=== PATIENT | male | born 1980 | race Caucasian/White ===

== ENCOUNTER 2017-12-04 11:16 | Inpatient (IN) | payer SELFPAY ==
[~2017-12-04] VITALS: Ht 172.7 cm; Wt 128.9 kg
[2017-12-04] VITALS (17 sets, daily range): BP systolic 130–161; BP diastolic 64–102; PULSE 53–80; RESP 16–32; TEMP 98–98.7; O2SAT 97–100
[~2017-12-04 11:16] MED LIST: AMOX875 PO; IBUP800 PO; IOHEXOL 350 MG/ML 100 ML BTL (for Cath Lab) OTHER ONE
[2017-12-04] MEDS ORDERED: SODIUM CHLOR 0.9% 1000 ML INJ 1,000 ML IV ONE ×2 (11:18→11:30)
[2017-12-04] MEDS ORDERED: ASPIRIN 81 MG CHEW TAB PO STA (11:18)
[2017-12-04] MEDS ORDERED: NITROGLYCERIN 0.4 MG SL 25 TABS/BTL SL STA (11:18)
[2017-12-04] MEDS ORDERED: HEPARIN SODIUM - IV 10,000 UNITS/10 ML VIAL IV PUSH STA (11:18)
[2017-12-04] MEDS ORDERED: NITROGLYCERIN-D5W 50 MG/250 ML 250 ML ONE (11:20)
[2017-12-04] MEDS ORDERED: MORPHINE SULFATE 4 MG/ML INJ ONE (11:21)
[2017-12-04] MEDS ORDERED: HEPARIN-NS/PF INJ 1,000 ML ONE (11:26)
[2017-12-04] MEDS ORDERED: HEPARIN SODIUM - IV 10,000 UNITS/10 ML VIAL ONE (11:28)
[2017-12-04] MEDS ORDERED: NITROGLYCERIN INJ 5 ML ONE (11:28)
[2017-12-04] MEDS ORDERED: VERAPAMIL HCL 5 MG/2 ML VIAL ONE (11:28)
[2017-12-04] MEDS ORDERED: NITROGLYCERIN-D5W 50 MG/250 ML 250 ML IV PRN (11:30)
[2017-12-04] MEDS ORDERED: MORPHINE SULFATE 2 MG/ML INJ IV PUSH ONE (11:30)
[2017-12-04] MEDS ORDERED: MIDAZOLAM HCL 2 MG/2 ML VIAL ONE ×3 (11:31→12:10)
[2017-12-04 11:38] LABS: AUTOMATED NEUTROPHIL # 4.9 TH/MM3 (1.8-7.7); BASOPHIL # 0.1 TH/MM3 (0-0.2); BASOPHIL % 0.9 % (0.0-2.0); EOSINOPHIL # 0.4 TH/MM3 (0-0.4); EOSINOPHIL % 3.3 % (0.0-4.0); HEMATOCRIT 41.9 % (39.0-51.0); HEMOGLOBIN 14.2 GM/DL (13.0-17.0); LYMPH % 49.9 % (9.0-44.0); LYMPHOCYTE # 6.3 TH/MM3 (1.0-4.8); MEAN CELL VOLUME 86.3 FL (80.0-100.0); MEAN CORPUSCULAR HEMOGLOBIN 29.2 PG (27.0-34.0); MEAN CORPUSCULAR HGB CONC 33.8 % (32.0-36.0); MEAN PLATELET VOLUME 7.1 FL (7.0-11.0); MONO % 7.6 % (0.0-8.0); NEUT % 38.3 % (16.0-70.0); PLATELET COUNT 342 TH/MM3 (150-450); RED BLOOD COUNT 4.86 MIL/MM3 (4.50-5.90); WHITE BLOOD COUNT 12.7 TH/MM3 (4.0-11.0)
[2017-12-04] MEDS ORDERED: MORPHINE SULFATE 8 MG/ML INJ ONE (11:43)
--- NOTE | 2017-12-04 11:44 | RADRPT ---
EXAM DATE/TIME: 12/04/2017 11:25 [place] COMPARISON: No previous studies available for comparison. INDICATIONS : Stemi alert MEDICAL HISTORY : None. SURGICAL HISTORY : None. ENCOUNTER: Initial ACUITY: 1 day PAIN SCORE: 10/10 LOCATION: Bilateral chest FINDINGS: A single view of the chest demonstrates the lungs to be symmetrically aerated without evidence of mas s, infiltrate or effusion. The cardiomediastinal contours are unremarkable. Osseous structures are intact. CONCLUSION: No acute disease. Foster Patrick MD on December 04, 2017 at 11:40 Board Certified Radiologist. This report was verified electronically.
[2017-12-04] MEDS ORDERED: NITROGLYCERIN/DEXTROSE 5% 250 ML for chest pain IV PRN (11:45)
[2017-12-04 11:48] LABS: PROTHROMBIN TIME - PATIENT 10.3 SEC (9.8-11.6)
--- NOTE | 2017-12-04 11:54 | PD ---
HPI Chief Complaint: STEMI Alert Time Seen by Provider: 11:17 Travel History International Travel<30 days: No Contact w/Intl Traveler<30days: No Traveled to known affect area: No History of Present Illness HPI 37-year-old male presents to the emergency department complaint of chest pain. He has had intermittent chest pain for the past couple days, then has had severe unrelenting chest pain for the past couple hours. EMS EKG showed inferior ST elevation PA. Patient has no known medical history. Endorses marijuana use but no sympathomimetic use. He has otherwise been feeling generally well and healthy. Symptoms been severe, constant sounds like, without aggravating or alleviating factors. History Past Medical History Medical History: Denies Significant Hx Social History Alcohol Use: Yes (OCCAS) Tobacco Use: No Allergies-Medications (Allergen,Severity, Reaction): Coded Allergies: No Known Allergies (Unverified Allergy, Unknown, 12/04/17) Reported Meds & Prescriptions Reported Meds & Active Scripts Active Motrin 800 Mg Tab (Ibuprofen) 800 Mg Tab 800 Mg PO Q8H PRN 7 Days Amoxil (Amoxicillin) 875 Mg Tab 875 Mg PO BID Review of Systems Except as stated in HPI: all other systems reviewed are Neg Physical Exam Narrative GENERAL: Ill-appearing 37-year-old man, pale cool diaphoretic. SKIN: Diaphoretic. No rash. HEAD: Atraumatic. Normocephalic. EYES: Pupils equal and round. No scleral icterus. No injection or drainage. ENT: No nasal bleeding or discharge. Mucous membranes pink and moist. NECK: Trachea midline. No JVD. CARDIOVASCULAR: Regular rate and rhythm. No murmur appreciated. RESPIRATORY: No accessory muscle use. Clear to auscultation. Breath sounds equal bilaterally. GASTROINTESTINAL: Abdomen soft, non-tender, nondistended. Hepatic and splenic margins not palpable. MUSCULOSKELETAL: No obvious deformities. No edema. NEUROLOGICAL: Awake and alert. No obvious cranial nerve deficits. Motor grossly within normal limits. Normal speech. PSYCHIATRIC: Anxious. Data Data Last Documented VS Vital Signs Date Time Temp Pulse Resp B/P (MAP) Pulse Ox O2 Delivery O2 Flow Rate FiO2 12/04/17 11:25 98.2 53 30 161/102 (121) 100 Non-Rebreather 15.00 Orders Orders Troponin I (12/04/17 11:18) Ckmb (Isoenzyme) Profile (12/04/17 11:18) Complete Blood Count With Diff (12/04/17 11:18) I-Stat Profile (12/04/17 11:18) I-Stat Creatinine (12/04/17 11:18) Calcium (12/04/17 11:18) Magnesium (Mg) (12/04/17 11:18) Prothrombin Time / Inr (Pt) (12/04/17 11:18) Act Partial Throm Time (Ptt) (12/04/17 11:18) B-Type Natriuretic Peptide (12/04/17 11:18) Chest, Single Ap (12/04/17 11:18) Electrocardiogram (12/04/17 11:18) Oxygen Administration (12/04/17 11:18) Iv Access Insert/Monitor (12/04/17 11:18) Oximetry (12/04/17 11:18) Sodium Chlor 0.9% 1000 Ml Inj (Ns 1000 M (12/04/17 11:18) Sodium Chloride 0.9% Flush (Ns Flush) (12/04/17 11:30) Aspirin Chew (Aspirin Chew) (12/04/17 11:18) Nitroglycerin Sl (Nitrostat Sl) (12/04/17 11:18) Heparin Inj (Heparin Inj) (12/04/17 11:18) Morphine Inj (Morphine Inj) (12/04/17 11:30) Sodium Chlor 0.9% 1000 Ml Inj (Ns 1000 M (12/04/17 11:30) Morphine Inj (Morphine Inj) (12/04/17 11:21) Admit Order (Ed Use Only) (12/04/17 ) Labs Laboratory Tests Test 12/04/17 11:15 White Blood Count 12.7 TH/MM3 Red Blood Count 4.86 MIL/MM3 Hemoglobin 14.2 GM/DL Bedside Hemoglobin 13.9 G/DL Hematocrit 41.9 % Bedside Hematocrit 41.0 % Mean Corpuscular Volume 86.3 FL Mean Corpuscular Hemoglobin 29.2 PG Mean Corpuscular Hemoglobin Concent 33.8 % Red Cell Distribution Width 14.0 % Platelet Count 342 TH/MM3 Mean Platelet Volume 7.1 FL Neutrophils (%) (Auto) 38.3 % Lymphocytes (%) (Auto) 49.9 % Monocytes (%) (Auto) 7.6 % Eosinophils (%) (Auto) 3.3 % Basophils (%) (Auto) 0.9 % Neutrophils # (Auto) 4.9 TH/MM3 Lymphocytes # (Auto) 6.3 TH/MM3 Monocytes # (Auto) 1.0 TH/MM3 Eosinophils # (Auto) 0.4 TH/MM3 Basophils # (Auto) 0.1 TH/MM3 CBC Comment AUTO DIFF Prothrombin Time 10.3 SEC Prothromb Time International Ratio 1.0 RATIO Activated Partial Thromboplast Time 23.1 SEC Bedside Sodium 142 MMOL/L Bedside Potassium 3.7 MMOL/L Bedside Chloride 108 MMOL/L Bedside Blood Urea Nitrogen 20 MG/DL Bedside Creatinine 0.9 MG/DL Bedside Glucose 156 MG/DL [facility] Medical Decision Making Medical Screen Exam Complete: Yes Emergency Medical Condition: Yes Interpretation(s) My review of EKG: Sinus bradycardia at a rate of 50, ST elevations in inferior leads with reciprocal lateral depressions in 1 and aVL, acute ST elevation PA. Right-sided EKG shows ST elevations in V4 R, V5 R, V6 R, suggestive right-sided infarct. I-STAT: Chemistries unremarkable, hemoglobin 13.9, creatinine 0.[address] elevation PA, aortic dissection, pericarditis, vasospasm, other Narrative Course Medical decision making 37-year-old man, presents to the emergency department complaining of severe chest pain. EKG from the field showed ST elevation PA. I reviewed this EKG prior to the patient's arrival. We called stimulant based on this initial field EKG. I was not able to call the physician until we determined which physician will need to be called on patient's arrival. On patient's arrival I did speak with Dr. Ocampo's. EKG was sent to his phone for review as well. Patient was given aspirin in route with EMS. Patient was given IV fluids, morphine, and heparin, as well as nitroglycerin infusion. Sublingual nitroglycerin was held due to concern for RV infarct. Patient had some bradycardia was treated with half a milligram of atropine. Given the patient's instability, I accompanied the patient to the Manager Training until Dr. Fu' arrival. Critical Care Narrative Aggregate critical care time was 40 minutes. Time to perform other separately billable procedures was not included in the critical care time. My time did not include minutes spent treating any other patients simultaneously or on activities that did not directly contribute to the patient's treatment. The services I provided to this patient were to treat and/or prevent clinically significant deterioration that could result in: , arrhythmia, worsening heart failure, . I provided critical care services requiring my management, as noted below: Chart data review, documentation time, medication orders and management, vital sign assessments/reviewing monitor data, ordering and reviewing lab tests, ordering and interpreting/reviewing x-rays and diagnostic studies, traveling with the patient to the Manager Training, care of the patient and discussion of the patient with the admitting physicians. Diagnosis Primary Impression: STEMI (ST elevation myocardial infarction) Admitting Information Admitting Physician Requests: Brendan Staton MD Dec 04, 2017 11:54
[2017-12-04 12:16] LABS: LYMPHOCYTES 50 % (9-44); MONOCYTES 7 % (0-8); NEUTROPHIL # MANUAL DIFF 5.5 TH/MM3 (1.8-7.7); POLYS (SEG NEUTROPHILS) 43 % (16-70)
[2017-12-04] MEDS ORDERED: CLOPIDOGREL 300 MG TAB ONE (12:35)
[2017-12-04] MEDS ORDERED: ATROPINE SULFATE 1 MG/10 ML SYRINGE ONE (12:37)
[2017-12-04] MEDS: TIROFIBAN INFUSION INJ 250 ML IV SCH ×2 (12:59→19:52)
[2017-12-04] MEDS ORDERED: MISC INFORMATION XX ONE (13:00)
[2017-12-04 13:12] LABS: CALCIUM 9.1 MG/DL (8.5-10.1); MAGNESIUM 1.8 MG/DL (1.5-2.5)
[2017-12-04 13:14] LABS: TROPONIN I 0.09 NG/ML (0.02-0.05)
--- NOTE | 2017-12-04 13:23 | MA ---
cc: LELO BOOGIE M.D. DATE: 12/04/2017. PROCEDURE: Left heart catheterization, selective coronary angiography, left ventriculography, thrombectomy, angioplasty and stent of a totally occluded proximal right coronary artery. PROCEDURE NOTES: The patient was brought to the cardiac catheterization laboratory in a fasting state after having signed informed consent in the midst of an acute inferior ST-elevation myocardial infarction. The right radial region was prepped and draped as per policy and anesthetized with 1% lidocaine. Arterial access was obtained via the right radial artery and a 6-Algerian sheath placed. We initially took shots of the right coronary with a tiger catheter. We could not engage the left main. We decided to proceed with percutaneous coronary intervention, but manipulation of catheters became difficult probably due to spasm in the right radial region. It was decided to perform the rest of the case through a right femoral arteriotomy approach. The right groin was anesthetized with 1% lidocaine. Arterial access was obtained via the right femoral artery and a 6-Algerian sheath placed. Coronary arteriography of the left coronary system was done using a Mary left 4.0. Percutaneous coronary intervention was done as described below. Left ventriculography was done using a standard 6-Algerian pigtail. The patient tolerated the procedure well. There were no apparent immediate complications. HEMODYNAMIC RESULTS: Left ventricle 128 with an end-diastolic pressure of 12. Aorta 137/88 with a mean of 110. There was no significant transvalvular aortic gradient on pullback of pigtail catheter. CORONARY ARTERIOGRAPHY: The left main is normal. The left anterior descending gives rise to a fairly large diagonal. There may be up to 20% mid-LAD stenosis. The left circumflex is a medium-sized vessel giving rise to medium-sized obtuse marginal. There is up to 30% proximal left circumflex stenosis. The right coronary artery is totally occluded proximally. LEFT VENTRICULOGRAPHY: Contrast injection of the left ventricle reveals no segmental wall motion abnormalities. Estimated ejection fraction of 60%. PERCUTANEOUS CORONARY INTERVENTION DESCRIPTION: Adequate heparin was given during the procedure to achieve an ACT greater than 250 seconds. Aggrastat was given as per protocol. Using a 6-Algerian hockey-stick guiding catheter with side holes, the ostium of the right coronary artery was re-engaged. Using a 0.014 P[place]ater guidewire, the total occlusion was crossed without difficulty and the tip of the wire positioned distally. One pass was made using an export thrombectomy catheter reestablishing flow in the vessel. Pre-dilation was done using a 3.0-mm Euphora balloon catheter. Stenting was done using a 3.5 x 15 mm bare- metal Integrity stent which was deployed at 13 atmospheres for approximately 30-40 seconds. Final angiography shows reduction of the total occlusion to 0% residual with no evidence for dissection or distal embolization. A large right ventricular branch which extends towards the apex has 30% ostial stenosis. The mid right coronary also has up to 30% tubular stenosis right after the takeoff of this right ventricular branch. CONCLUSIONS: 1. Acute inferior ST-elevation myocardial infarction due to total occlusion of the proximal right coronary artery now status post thrombectomy, angioplasty and stent of this region. 2. Mild LAD and proximal circumflex disease. 3. Normal left ventricular function with estimated ejection fraction of 60%. MD WAYNE Londono/SAIDA /12:39 PM /1:15 PM [place]
--- NOTE | 2017-12-04 13:38 | CATHPROC ---
[employer] HIS Report Study Information Study Number Admission Scheduled Start Study Start [id number] Dec 04 2017 11:16AM 12/04/2017 Dec 04 2017 11:35AM [place] Service Cardiac Catheterization Admit Source Facility Department Emergency department [facility] - Netsuite Consultant Physician and Clinical Staff Initial Jaiden Bonilla Business Services Director Razia Rosas BSN Business Services Director Stamper, Sarah Recorder Yamilet Valadez,SPECIAL SERVICES COORDINATOR TECH2 Scrub Hostliang, John,RT(R) Procedures Performed Procedure Location (Site) Vessel Name Angiogram LV LV Ventricle Coronary Angiograms LCA Left Coronary Coronary Angiograms RCA Right Coronary PTCA RCA Prox Right Coronary Stent RCA Prox Right Coronary Wire insertion Fem Art (right) Femoral Art Equipment Time Automated Equipment Engineer Technician Description Size Mfg Part Number Used/Scraped [id number] 12:00 [employer] WIRE, ASAFireID PROWATER 180CM 180CM Used *[id number] TRANSDUCER, TRUWAVE [id number] 11:57 ALVARADO MEDRANO * Used W/STOCKCOCK *[id number] 12:33 [facility] VASCADE, FR6 CLOSURE SYSTEM FR 6\\7 Used *[phone] *[id number] [id number] *[id number] [id number] *[id number] 534-620T *[id number] [phone] *1720087 [id number] *[id number] 098848 11:57 MALLINCKRODT SYRINGE, ANGIOMAT 150ML 150ML *[id number] Used 2S MEDICAL CONCEPT DRAPE, RADIAL FEMORAL FULL 11:57 * [id number] *[id number] Used DEVELOPMENT BODY [id number] 11:57 MEDLINE IND[employer]RIES PACK, CCL CUSTOM * Used *[id number] 11:57 [employer] SUPPORT, ARTERIAL ADULT 70188 *[id number] Used [id number] 11:57 MEDLINE PACER PEN, SKIN DUAL W/ RULER * Used *[id number] 12:19 [employer] BALLOON, 3.0 X 10MM EUPHORA 10MM Used *[id number] EXPORTAP 12:05 [employer] CATHETER, EXPORT ASPIRATON Used *[id number] 12:22 [employer] STENT, 3.5 15 INTEGRITY 3.5 15 Used *3971206 [id number] 12:21 [employer] 30 STEPHEN INDEFLATOR Used *6050019 [id number] 11:51 [email or web address] MEDICAL 30 STEPHEN INDEFLATOR Used *5544720 BAND, RADIAL COMPRESSION TR [id number] 12:40 [email or web address] MEDICAL 29CM Used LARGE 29 *[id number] 12:14 [employer] SHEATH, FR6.5 PRELUDE 11CM FR 6.5 038ACT Used *5336899 [id number] 11:57 [employer] WIRE, EXCHANGE 260CM 3MMJ 260CM Used *[id number] 11:57 NAMIC MANIFOLD, 4 PORT * Used *6631101 [id number] 12:33 NAMIC TUBING, HIGH PRESSURE 20" 20" Used *6381005 11:57 [employer] OMNIPAQUE, 350 MG, 150ML 150ML [id number] Used 12:30 [employer] OMNIPAQUE, 350 MG, 50ML 50ML [id number] Used 12:32 NYCOMED OMNIPAQUE, 350 MG, 50ML 50ML [id number] Used 15:08 [employer] FEMSTOP PUMP 82550 Used [id number] 11:57 [facility] BLANKET,WARM AIR CCL * Used *3254935 CATHETER, FR5 OPTITORQUE [id number] 11:55 [employer] FR 5 Used RADIAL TIG 4.0 *[id number] SHEATH, FR6 TRANSRADIAL RM*[id number] 11:58 TERUM[employer] FR 6 Used SLENDER 10CM *[id number] Equipment Model, Serial, Lot Number and Expiration Data Description Model Number Serial Number Lot Number Expiration Date CATHETER, EXPORT ASPIRATON [id number] 09-15-2019 STENT, 3.5 15 INTEGRITY [id number] 03-03-2019 History: Allergies Allergy Reaction No Known Allergies History: Risk Factors Family History of Hypertension Dyslipidemia Previous MO Previous Heart Failure Premature CAD No No Yes No No Prior Valve Prior PCI Prior CABG Surgery No No No Cerebrovascular Peripheral Artery Chronic Lung On Dialysis Diabetes Disease Disease Disease No No No No No History: Symptoms/Diagnosis Selection Items Chest pain History: Stress Tests Stress or Imaging Studies Performed No History: Other Current Smoker No Labs Hgb (g/dl) Hct (%) RBC (MIL/MM3) WBC (l/cumm) Platelets (thousands) 11.60-17.00 35.00-51.00 4.00-5.90 4.00-11.00 150.00-450.00 14.2 41.9 4.8 12.7 342 Glucose (mg/dl) BUN (mg/dl) Creatinine (mg/dl) BUN:Creatinine (1:x) 74.00-106.00 7.00-18.00 0.50-1.30 10.00-20.00 156 20 0.9 22.2 Na (meq/l) K (meq/l) Cl (meq/l) 136.00-145.00 3.50-5.10 98.00-107.00 142 3.7 108 CPK-MB (ng/ML) 0.50-3.60 Not Drawn Medication Medication Total Dose (Bolus/Oral) Medication Total Dosage/Unit 1% XYLOCAINE 30 mL AGGRASTAT BOLUS 66.5 mL ATROPINE 0.5 mg FENTANYL 100 mcg HEPARIN 7800 units MORPHINE 4 mg OXYGEN 2 l/min PLAVIX 600 mg RADIAL COCKTAIL 5 mL (Bolus) VERSED 4 mg Medications (Bolus/Oral) Medication Time Given Dosage/Unit Administered By Reason MORPHINE 12/04/2017 11:45:34 AM 4 mg Razia Rosas 4 mg MORPHINE given in lab by Razia Rosas BSN in Left Wrist via Peripheral IV. Ordered by Jaiden Wilkerson. 1% XYLOCAINE 12/04/2017 11:53:45 AM 10 mL Jaiden Fu 10 mL 1% XYLOCAINE given in lab by Jaiden Fu in Right Radial via Subcutaneous. Ordered by Gris Fu. VERSED 12/04/2017 11:53:54 AM 2 mg Razia Rosas 2 mg VERSED given in lab by Razia Rosas BSN in Left Wrist via Peripheral IV. Ordered by Jaiden Bowles. FENTANYL 12/04/2017 11:54:12 AM 50 mcg Razia Rosas 50 mcg FENTANYL given in lab by Razia Rosas BSN in Left Wrist via Peripheral IV. Ordered by Jaiden Fu. Ntg 200mcg Verapamil 2.5mg Heparin RADIAL COCKTAIL 12/04/2017 11:56:43 AM 5 mL (Bolus) Jaiden Fu 2500U 5 mL (Bolus) RADIAL COCKTAIL given in lab by Jaiden Fu in Right Radial via Radial. Using [Solution Name]. Ordered by Jaiden Fu. Reason: Ntg 200mcg Verapamil 2.5mg Heparin 2500U. VERSED 12/04/2017 11:57:36 AM 2 mg Razia Rosas 2 mg VERSED given in lab by Razia Rosas BSN in Left Wrist via Peripheral IV. Ordered by Jaiden Bowles. HEPARIN 12/04/2017 12:08:17 PM 7800 units Razia Rosas 7800 units HEPARIN given in lab by Razia Rosas BSN in Left Wrist via Peripheral IV. Ordered by Jaiden Fu. 1% XYLOCAINE 12/04/2017 12:10:59 PM 20 mL Jaiden Fu 20 mL 1% XYLOCAINE given in lab by Jaiden Fu in Right Groin via Subcutaneous. Ordered by Santy Fu. FENTANYL 12/04/2017 12:12:20 PM 50 mcg Sarah Phipps 50 mcg FENTANYL given in lab by Sarah Phipps in Left Wrist via Peripheral IV. Ordered by Santy Fu. ATROPINE 12/04/2017 12:18:37 PM 0.5 mg Razia Rosas 0.5 mg ATROPINE given in lab by Razia Rosas BSN in Left Wrist via Peripheral IV. Ordered by Jaiden Fu. OXYGEN 12/04/2017 12:40:31 PM 2 l/min Razia Rosas 2 l/min OXYGEN given in lab by Razia Rosas BSN via Nasal. Ordered by Jaiden Fu. Non rebre ather removed PLAVIX 12/04/2017 12:58:55 PM 600 mg Razia Rosas 600 mg PLAVIX given in lab by Razia Rosas BSN via Oral. Ordered by Jaiden Fu. AGGRASTAT BOLUS 12/04/2017 12:59:21 PM 66.5 mL Razia Rosas 66.5 mL AGGRASTAT BOLUS given in lab by Razia Rosas BSN in Left Wrist via Peripheral IV. Ord ered by Jaiden Fu. Medication (Drip) Medication Time Given Dosage/Unit Concentration/Unit Diluent (ml) Solutio n AGGRASTAT DRIP 12/04/2017 12:59:51 PM 0.15 mcg/kg/min 12.5 mg 250 NaCl .9 0.15 mcg/kg/min AGGRASTAT DRIP given in lab by Razia Rosas BSN in Left Wrist via Peripheral IV. Pump/Drip Flow = 23.4 ml/hr using NaCl .9 with a concentration of 12.5 mg in 250 ml. Ordered by Jaiden Fu. IV Solutions 12/04/2017 11:44:35 AM 0 mL (IV) 500 NaCl .9 Patient arrived on IV Solutions in Left Wrist via Peripheral IV. Pump/Drip Flow = 20 ml/hr using NaCl .9. Initial Case Assessment Cardiovascular HR Rhythm NIBP Chest Pain 71 sr 168/121 10 Circulatory - Right Pulses Dorsalis Pedis Femoral Radial 1 2 2 Scale (0,1,2,3,4,d) Scale (0,1,2,3,4,d) Neurological State Oriented to time-place- Alert Moves all extremities person Respiration - General Respiration Rate SpO2 (%) O2 (lpm) (B/min) 20 99 15 Comment: non-rebreather Final Case Assessment Cardiovascular HR Rhythm NIBP Chest Pain 93 sr 130/92 2 Circulatory - Right Pulses Posterior Tibial Femoral Radial d 1 2 Scale (0,1,2,3,4,d) Scale (0,1,2,3,4,d) Neurological State Oriented to time-place- Alert Moves all extremities person Respiration - General Respiration Rate SpO2 (%) O2 (lpm) (B/min) 20 99 2 Chronological Log Time Study Chronological Log Patient arrived directly from ER, NTG drip bibianar to caath lab arrival. Patient recieved he arabella bolus and aspirin prior 11:36:54 to arrival. 11:37:02 Patient Name, D.O.B, / Armband Verified By R.N. 11:37:05 Pre-op and post- op instructions given; patient acknowledges understanding of instructions . 11:37:07 Consent signed by the physician and the patient and verified by the Netsuite Consultant staff. Vitals capture started with the following parameters, Patient=Adult, Interval=5 min, Initial P ihnxnsu=831 mmHg, 11:43:50 Deflation Rate=5 mmHg, Cuff placed on Left Arm 11:44:01 Verbal Stimulation=2 Physical Stimulation=2 Airway=2 Respiration=2 TOTAL=8. (0=absent, 1=li mited, 2=present) 11:44:04 Presedation assessment performed by Netsuite Consultant RN. 11:44:07 Allens test performed on the right radial and ulnar artery. 11:44:23 Patient has been NPO for Less than 6Hrs. 11:44:25 Patient has been NPO for More than 6Hrs. 11:44:28 Skin Breakdown-none 11:44:29 Disposable Defibrillator Pads Placed On Patient. 11:44:31 Celia Prominences Protected 11:44:34 A # 20 IV was noted in the Wrist (left). Grade = patent 11:44:35 Patient arrived on IV Solutions in Left Wrist via Peripheral IV. Pump/Drip Flow = 20 ml/hr using NaCl .9. 11:44:36 History and physical on the chart or being dictated. Assessment: Initial Case, HR=71 BPM, Rhythm=sr, AGOU=748/121 mmhg, Chest Pain=10 Right Pulses: Kristopher Ped=1, Femoral=2, Radial=2 11:44:37 Neurological: State=Alert, Ox3, PINA Respiration: Resp=20 B/min, SpO2=99 %, O2=15 lpm, Comment=non-rebreather 11:44:49 Reference ECG taken 11:45:12 HR=70 bpm, GVCW=893/124 mmhg, SpO2=99.0 %, Resp=22 B/min, Pain=10, Wilcox=1 11:45:34 4 mg MORPHINE given in lab by Razia Rosas BSN in Left Wrist via Peripheral IV. Ord ered by Jaiden Fu. 11:45:46 A # 20 IV was noted in the Antecubital (right). Grade = patent 11:46:29 Right groin and right wrist prepped with 2% chlorhexidine, and draped after a 3 min. waitin g time. 11:48:30 paged 11:49:38 HR=73 bpm, BZZI=073/121 mmhg, SpO2=98.0 %, Resp=19 B/min 11:50:31 MD arrived. Time Out. Correct patient, correct procedure, correct physician, power injector not loaded with contrast with surgical 11:53:13 team present. Time Out Concurred by MD and individual staff in procedure. 11:53:40 Case Start 11:53:45 10 mL 1% XYLOCAINE given in lab by Jaiden Fu in Right Radial via Subcutaneous. Ordered b y Jaiden Fu. 11:53:54 2 mg VERSED given in lab by Razia Rosas BSN in Left Wrist via Peripheral IV. Order ed by Jaiden Fu. 11:54:12 50 mcg FENTANYL given in lab by Razia Rosas BSN in Left Wrist via Peripheral IV. O rdered by Jaiden Fu. 11:54:35 HR=77 bpm, IOMV=573/110 mmhg, SpO2=99.0 %, Resp=24 B/min 11:55:24 Pressure channel 1 zeroed. 11:55:58 Access site was Radial Artery. Right A SHEATH, FR6 TRANSRADIAL SLENDER 10CM FR 6 was advanced into the Radial (right) using the Perc utaneous 11:56:11 technique. 5 mL (Bolus) RADIAL COCKTAIL given in lab by Jaiden Fu in Right Radial via Radial. Using [So lution Name]. Ordered 11:56:43 by Jaiden Fu. Reason: Ntg 200mcg Verapamil 2.5mg Heparin 2500U. A CATHETER, FR5 OPTITORQUE RADIAL TIG 4.0 FR 5 was advanced over a wire. OMNIPAQUE, 350 MG, 150 ML 150ML 11:57:19 was used for injections. 11:57:36 2 mg VERSED given in lab by Razia Rosas BSN in Left Wrist via Peripheral IV. Order ed by Jaiden Fu. Recorded Pressure: Ao, HR=87, Condition=Condition 1 11:58:19 (Aorta) Ao 130/100/116 11:58:41 The RCA was injected and visualized at various angles. OMNIPAQUE, 350 MG, 150ML 150ML used . 11:59:34 HR=78 bpm, UPMS=989/109 mmhg, SpO2=94.0 %, Resp=8 B/min Unable to cannulate LCA, after removing the current catheter a JL 3.5 INFINITI CATHETER FR 6 wa s advanced over a 12:00:50 WIRE, EXCHANGE 260CM 3MMJ 260CM. Unable to cannulateLCA, after removing the current catheter a JL 4.0 INFINITI CATHETER FR 6 was advanced over a 12:02:25 WIRE, EXCHANGE 260CM 3MMJ 260CM. After removing the current catheter a HS SH GUIDE CATHETER FR 6 was advanced over a WIRE, EXCHA NGE 260CM 12:03:39 3MMJ 260CM. 12:04:16 Activated Clotting Time Drawn 12:04:35 HR=74 bpm, BLDV=907/110 mmhg, SpO2=97.0 %, Resp=13 B/min Recorded Pressure: Ao, HR=93, Condition=Condition 1 12:06:25 (Aorta) Ao 114/12/64 Recorded Pressure: LV, Ao, HR=92, Condition=Condition 1 12:06:28 (Left Ventricle) LV 121/4/8, (Aorta) Ao 131/92/116 Unable to cannulate RCA, After removing the current catheter a JR 5.0 GUIDE CATHETER FR 6 was a dvanced over a 12:07:08 WIRE, EXCHANGE 260CM 3MMJ 260CM. 12:07:30 ACT (Normal Range 90-180) = 160 7800 units HEPARIN given in lab by Razia Rosas BSN in Left Wrist via Peripheral IV. Or dered by Tank, 12:08:17 Jaiden. 12:09:38 HR=75 bpm, BOSK=282/120 mmhg, SpO2=99.0 %, Resp=16 B/min 12:10:08 Catheter was removed, Unable to cannulate RCA. 12:10:21 Aborting radial access. 12:10:59 20 mL 1% XYLOCAINE given in lab by Jaiden Fu in Right Groin via Subcutaneous. Ordered by Jaiden Fu. 12:12:20 50 mcg FENTANYL given in lab by Sarah Phipps in Left Wrist via Peripheral IV. Ordered by Jaiden Fu. 12:12:22 Access site was Right Femoral Artery. 12:12:43 A SHEATH, FR6.5 PRELUDE 11CM FR 6.5 was advanced into the Fem Art (right) using the Percuta neous technique. A HS SH GUIDE CATHETER FR 6 was advanced over a wire. OMNIPAQUE, 350 MG, 150ML 150ML was used f or 12:13:13 injections. Recorded Pressure: Ao, HR=76, Condition=Condition 1 12:14:26 (Aorta) Ao 157/111/132 12:14:39 HR=79 bpm, NBJZ=286/127 mmhg, DnZ7=328.0 %, Resp=17 B/min 12:14:40 The RCA was injected and visualized at various angles. OMNIPAQUE, 350 MG, 150ML 150ML used . 12:15:24 A WIRE, ASAHI PROWATER 180CM 180CM was inserted via Fem Art (right). 12:16:03 A CATHETER, EXPORT ASPIRATON was advanced over a wire. 12:16:48 Aspiration in progress. 12:17:40 [place] Catheter was removed 12:18:37 0.5 mg ATROPINE given in lab by Razia Rosas BSN in Left Wrist via Peripheral IV. O rdered by Jaiden Fu. 12:19:38 GV=496 bpm, FUQF=052/121 mmhg, SpO2=93.0 %, Resp=57 B/min 12:19:40 A BALLOON, 3.0 X 10MM EUPHORA 10MM was inserted over WIRE, ASAHI PROWATER 180CM 180CM via t he RCA Prox. A BALLOON, 3.0 X 10MM EUPHORA 10MM over a WIRE, ASAHI PROWATER 180CM 180CM in the RCA Prox was inflated 12:20:24 using a 30 STEPHEN INDEFLATOR at 13 stephen for 20 sec. 12:21:18 Balloon Removed. An STENT, 3.5 15 INTEGRITY 3.5 15 Bare Metal Stent was inserted through a HS SH GUIDE CATHETER FR 6 over a 12:22:32 WIRE, ASAHI PROWATER 180CM 180CM. A STENT, 3.5 15 INTEGRITY 3.5 15 was deployed using a 30 STEPHEN INDEFLATOR at 13 atmospheres for 3 0 seconds in 12:23:48 the RCA Prox. 12:24:37 CB=547 bpm, LJEM=401/88 mmhg, SpO2=96.0 %, Resp=17 B/min 12:24:41 Delivery device removed 12:26:51 Wire and Catheter were removed A JL 4.0 INFINITI CATHETER FR 6 was advanced over a wire. OMNIPAQUE, 350 MG, 150ML 150ML was us ed for 12:27:13 injections. 12:27:23 The LCA was injected and visualized at various angles. OMNIPAQUE, 350 MG, 150ML 150ML used . 12:28:30 Catheter was removed 12:29:32 VX=206 bpm, UMWV=819/102 mmhg, Resp=25 B/min A PIGTAIL STR INFINITI CATHETER FR 6 was advanced over a wire. OMNIPAQUE, 350 MG, 50ML 50ML was used for 12::33 injections. Recorded Pressure: LV, ND=496, Condition=Condition 1 12:30:05 (Left Ventricle) LV 129/7/14 12:31:00 The LV was injected at 12 cc/sec for a total of 42. OMNIPAQUE, 350 MG, 50ML 50ML used. Recorded Pressure: LV, Ao, IS=573, Condition=Condition 1 12:31:53 (Left Ventricle) LV 128/7/12, (Aorta) Ao 137/88/110 12:32:42 Catheter was removed 12:33:31 Case End 12:33:41 An injection in the Fem Art (right) was made through the SHEATH, FR6.5 PRELUDE 11CM FR 6.5. 12:34:35 DV=258 bpm, LJHG=178/108 mmhg, SpO2=99.0 %, Resp=21 B/min, Pain=2, Wilcox=2 12:35:06 VASCADE, FR6 CLOSURE SYSTEM FR 6\\7 placement in the Fem Art (right) 12:38:34 Sterile dressing applied to site 12:38:39 Cine recording checked. 12:38:43 Bedside Report will be given. 12:39:34 HR=97 bpm, NWXH=521/108 mmhg, FjY3=608.0 %, Resp=15 B/min 2 l/min OXYGEN given in lab by Razia Rosas BSN via Nasal. Ordered by Jaiden Fu. Non rebreather 12:40:31 removed 12:44:35 HR=95 bpm, BMZB=334/107 mmhg, IkU2=598.0 %, Resp=13 B/min 12:45:32 Activated Clotting Time Drawn Radial Compression Device Used. 15 mLs of air placed in BAND, RADIAL COMPRESSION TR LARGE 29 29 CM. Affected 12:49:18 hand 100 % O2 saturation. 12:49:36 HR=93 bpm, XUXI=897/105 mmhg, NnH3=300.0 %, Resp=13 B/min 12:51:26 ACT (Normal Range 90-180) = 245 12:54:35 HR=93 bpm, UOKS=234/111 mmhg, XxW6=075.0 %, Resp=12 B/min 12:58:55 600 mg PLAVIX given in lab by Razia Rosas BSN via Oral. Ordered by Glenn. Tank 66.5 mL AGGRASTAT BOLUS given in lab by Razia Rosas BSN in Left Wrist via Peripheral I V. Ordered by 12:59:21 Jaiden Fu. 12:59:41 MWQE=673/120 mmhg 0.15 mcg/kg/min AGGRASTAT DRIP given in lab by Razia Rosas BSN in Left Wrist via Perip heral IV. 12:59:51 Pump/Drip Flow = 23.4 ml/hr using NaCl .9 with a concentration of 12.5 mg in 250 ml. Ordered by Jaiden Fu. 13:04:28 Patient moved to bed Vitals capture started with the following parameters, Patient=Adult, Interval=5 min, Initial Pr oxsjvd=714 mmHg, 13:09:13 Deflation Rate=5 mmHg, Cuff placed on Left Arm 13:09:53 MSFD=636/96 mmhg 13:11:17 Pt coughed, closure device compromised, hematoma noted. Holding manual pressure. MD gerson prajapati 13:14:52 FYCQ=029/87 mmhg 13:19:51 IIFA=420/92 mmhg 13:24:50 NXNX=927/92 mmhg 13:25:42 Femstop applied, 143 mmhg. Right PT pulse verified by doppler. 13:29:55 Patient transported to [facility] 13:30:39 Case complication noted. Complication: Case Complications 13:30:40 Surgery: Arterial: Hematoma (<4 inches or 10 cm) Assessment: Final Case, HR=93 BPM, Rhythm=sr, IRWV=928/92 mmhg, Chest Pain=2 Right Pulses: Post Tib=d, Femoral=1, Radial=2 13:30:41 Neurological: State=Alert, Ox3, PINA Respiration: Resp=20 B/min, SpO2=99 %, O2=2 lpm End Study - Contrast Media Used In Study Contrast Total Opened (mL) Total Used (mL) Total Wasted (mL) Omnipaque 160 160 0 End Study - Maximum Contrast Load Max Contrast Load (mL) 722.2 End Study - Radiation Exposure Fluoro Time (minutes) 11.8 End Study - Sheaths Sheaths Pulled By Sheath Hold Time (min) John Ivy End Study - Patient Disposition Complications Transferred To Interventional Outcome Yes Telemetry Bed successful
--- NOTE | 2017-12-04 14:03 | MB ---
cc: LELO BOOGIE M.D. DATE OF CONSULTATION: 12/04/2017 REASON FOR CONSULTATION: ST elevation myocardial infarction. HISTORY OF PRESENT ILLNESS The patient is a 37-year-old white male with no major past medical history who is in his usual state of health up until this morning when he began to develop severe substernal chest pressure without associated shortness of breath, nausea or diaphoresis. He came to the emergency room where EKG showed evidence for acute inferior injury pattern so he was called a STEMI alert. At this time he continues to have severe 10/10 chest pain. The chest discomfort is nonradiating. He denies pleurisy, dizziness, syncope, near-syncope, palpitations, pedal edema, paroxysmal nocturnal dyspnea. In retrospect he thinks he has had similar episodes of chest discomfort in the past few months, though of much less intensity and duration. PAST MEDICAL HISTORY None CARDIAC MEDICATIONS: Cardiac medications at home none ALLERGIES NO KNOWN DRUG ALLERGIES. FAMILY HISTORY There is no significant family history of early myocardial infarction. His uncle did pass away from myocardial infarction at age 38 SOCIAL HISTORY: The patient denies alcohol, tobacco abuse. He does smoke marijuana occasionally. REVIEW OF SYSTEMS The review of systems as in the history of present illness otherwise negative or noncontributory also denies headache, visual changes, abdominal pain, melena, dyspepsia, bright red blood per rectum. PHYSICAL EXAMINATION: VITAL SIGNS: On physical examination his blood pressure 120/90 with a pulse of 90, respirations 15. IN GENERAL: He is a well-developed, well-nourished white male in no acute distress. HEAD, EYES, EARS, NOSE, AND THROAT: On head, ears, eyes, nose, and throat examination jugular venous pressure is normal. NECK: Carotid pulses are 2+ bilaterally and without bruits. CHEST: Examination of the chest reveals clear lung angulo. CARDIAC: On cardiac examination he has a regular rhythm and rate without S3-S4 murmur or rub. ABDOMEN: On abdominal examination he has a soft, obese, nontender abdomen. Bowel sounds are present. There is no definite hepatosplenomegaly. EXTREMITIES: Examination of extremities reveals no clubbing, cyanosis or edema. Peripheral pulses are normal throughout. RADIOLOGIC: EKG shows sinus bradycardia, inferior ST elevation with possible reciprocal changes consistent with acute injury pattern. LABORATORY FINDINGS: Laboratory data includes WBC 12.7, hemoglobin 14.2, platelets 342 which has in 3.7, BUN 20, creatinine 0.9, troponin and CK. Chest x-ray shows no acute disease. IMPRESSION Acute inferior ST-elevation myocardial infarction in this 37-year-old white male with previously no major past medical history. At this time he continues to have severe chest pain with ST elevation on the monitor. Therefore he has been recommended emergency cardiac catheterization with probable percutaneous coronary intervention, the risks of which have explained to him including but not limited to , myocardial infarction, stroke, arrhythmia, bleeding, infection, renal failure. He agrees to proceed. RECOMMENDATIONS 1. Emergency cardiac catheterization. 2. Eventually start beta jewell and BROOKE inhibitor therapy. 3. Check a fasting lipid profile and start statin therapy. MD WAYNE Londono/blanche /12:53 PM /1:06 PM KANE
[2017-12-04] MEDS: SODIUM CHLOR 0.9% 1000 ML INJ 1,000 ML IV SCH ×2 (16:10→23:28)
[2017-12-04] MEDS ORDERED: ATORVASTATIN 40 MG TAB PO SCH (21:00)
[2017-12-04] MEDS: CARVEDILOL 3.125 MG TAB PO SCH (21:34)
[2017-12-04] MEDS: SODIUM CHLORIDE 0.9% FLUSH 10 ML FLUSH IVF PRN (21:34)
[2017-12-04] MEDS: ENALAPRIL MALEATE 5 MG TAB PO SCH (21:34)
[2017-12-05] VITALS (30 sets, daily range): BP systolic 124–147; BP diastolic 65–83; PULSE 58–95; RESP 16–18; TEMP 98.3–99.1; O2SAT 97–99
[2017-12-05] MEDS: TEMAZEPAM 15 MG CAP PO PRN ×2 (02:08→23:16)
[2017-12-05 04:11] LABS: AUTOMATED NEUTROPHIL # 8.4 TH/MM3 (1.8-7.7); BASOPHIL % 0.4 % (0.0-2.0); EOSINOPHIL # 0.1 TH/MM3 (0-0.4); EOSINOPHIL % 0.8 % (0.0-4.0); HEMATOCRIT 34.5 % (39.0-51.0); HEMOGLOBIN 11.6 GM/DL (13.0-17.0); LYMPHOCYTE # 2.8 TH/MM3 (1.0-4.8); MEAN CELL VOLUME 86.4 FL (80.0-100.0); MEAN CORPUSCULAR HGB CONC 33.5 % (32.0-36.0); MONO % 6.4 % (0.0-8.0); MONOCYTE # 0.8 TH/MM3 (0-0.9); NEUT % 69.4 % (16.0-70.0); PLATELET COUNT 293 TH/MM3 (150-450); RED CELL DISTRIBUTION WIDTH 14.2 % (11.6-17.2); WHITE BLOOD COUNT 12.1 TH/MM3 (4.0-11.0)
[2017-12-05 04:30] LABS: CALCIUM 8.3 MG/DL (8.5-10.1); CREATININE 0.77 MG/DL (0.60-1.30)
[2017-12-05 04:47] LABS: CHOLESTEROL/ HDL RATIO 7.41 RATIO; HDL CHOLESTEROL 26.3 MG/DL (40.0-60.0)
--- NOTE | 2017-12-05 08:40 | HHI.PR ---
Subjective Remarks Patient in bed, he appears not acute distress at this time. He says no more chest pain since admission. Patient is complaining of some pain in his right groin, she has a hematoma, however improved a little bit since yesterday, as also seen by Dr. Fu cardiology. The patient denies shortness of breath, diaphoresis, nausea or vomiting. No diarrhea or constipation. Objective Vitals Vital Signs Date Time Temp Pulse Resp B/P (MAP) Pulse Ox O2 Delivery O2 Flow Rate FiO2 12/05/17 06:00 60 12/05/17 05:00 66 12/05/17 04:00 68 12/05/17 03:32 64 16 147/75 (99) 97 12/05/17 03:00 65 12/05/17 02:00 66 12/05/17 01:00 58 12/05/17 00:00 66 12/04/17 23:38 70 16 155/73 (100) 98 12/04/17 23:00 57 12/04/17 22:00 62 12/04/17 21:00 62 12/04/17 20:00 80 12/04/17 20:00 98.7 58 16 149/79 (102) 97 12/04/17 19:00 62 12/04/17 18:00 67 12/04/17 17:00 54 12/04/17 16:12 98.5 66 18 135/81 (99) 99 12/04/17 16:00 65 12/04/17 15:25 56 12/04/17 15:00 64 12/04/17 14:22 98.0 75 18 130/64 (86) 97 12/04/17 14:00 76 12/04/17 11:51 98 15.00 12/04/17 11:25 98.2 53 30 161/102 (121) 100 Non-Rebreather 15.00 12/04/17 11:23 32 100 Non-Rebreather 15.00 12/04/17 11:23 100 Non-Rebreather I/O 12/04/17 12/04/17 12/04/17 12/05/17 12/05/17 12/05/17 07:00 15:00 23:00 07:00 15:00 23:00 Intake Total 490 ml 1730 ml Output Total 300 ml 1500 ml Balance 190 ml 230 ml Intake Oral 240 ml 480 ml IV Total 250 ml 1250 ml Output Urine Total 300 ml 1500 ml # Bowel Movements 0 Result Diagram: 12/05/17 0348 12/05/17 0348 Imaging Last Impressions Chest X-Ray 12/04/17 1118 Signed Impressions: Service Date/Time: Monday, December 04, 2017 11:25 - CONCLUSION: No acute disease. Foster Patrick MD Objective Remarks GENERAL: Young male, in bed, morbidly obese, appears in nad. SKIN: Warm and dry. Right groin with ecchymosis, soft hematoma, some pain on palpation. Fem pulse normal. Femostop was removed. Right wrist normal pulse, no ecchymosis. CARDIOVASCULAR: Regular rate and rhythm. RESPIRATORY: No accessory muscle use. Clear to auscultation. Breath sounds equal bilaterally. GASTROINTESTINAL: Abdomen soft, non-tender, nondistended. Hepatic and splenic margins not palpable. MUSCULOSKELETAL: Extremities without clubbing, cyanosis, or edema. No obvious deformities. NEUROLOGICAL: Awake and alert. No obvious cranial nerve deficits. Motor grossly within normal limits. Five out of 5 muscle strength in the arms and legs. Normal speech. PSYCHIATRIC: Appropriate mood and affect; insight and judgment normal. Procedures 12/04/17 Left heart catheterization, selective coronary angiography, left ventriculography, thrombectomy, angioplasty and stent of a totally occluded proximal right coronary artery by Dr Fu cardiology A/P Assessment and Plan (1) STEMI (ST elevation myocardial infarction) ICD Codes: I21.3 - ST elevation (STEMI) myocardial infarction of unspecified site Status: Acute Plan: S/P cardiac cath with stent placement by Dr Fu on 12/04/17. Patient with acute inferior ST elevation myocardial infarction due to total occlusion of the proximal right coronary artery, status post thrombectomy, angioplasty and stent placement by Dr. Fu. Stable overnight. No further angina. No CHF/arrhythmias. Transient post cath groin bleeding problems necessitating Femostop use, now stable. Femostop removed. Increase ambulation, possible discharge tomorrow on current medications, increase BROOKE-I dose per cardiology /Fiscussed with Dr Fu cardiology ff. (2) Hyperlipidemia ICD Codes: E78.5 - Hyperlipidemia, unspecified Status: Chronic Plan: Suboptimal lipid profile. Atorvastatin high dose Code Status full code Discussed Condition With [facility] nurse, patient and his mother at bedside Discharge plan possible discharge tomorrow if hamartoma improved, if ambulates and cleared by cardiology. Yue Alfonso MD Dec 05, 2017 08:40
[2017-12-05] MEDS: CARVEDILOL 3.125 MG TAB PO SCH ×2 (08:55→21:14)
[2017-12-05] MEDS: ENALAPRIL MALEATE 5 MG TAB PO SCH (09:04)
[2017-12-05] MEDS: ASPIRIN 325 MG TAB PO SCH (09:05)
[2017-12-05] MEDS: CLOPIDOGREL 75 MG TAB PO SCH (09:05)
[2017-12-05] MEDS: SODIUM CHLORIDE 0.9% FLUSH 10 ML FLUSH IVF PRN ×2 (09:08→21:16)
[2017-12-05] MEDS: SODIUM CHLOR 0.9% 1000 ML INJ 1,000 ML IV SCH (09:13)
--- NOTE | 2017-12-05 10:47 | PD.CARD.PN ---
Subjective Subjective Remarks No further angina. No dyspnea, dizziness, nausea, groin pain, wrist pain, palpitations. Objective Medications Item Value Date Time Atorvastatin 80 mg 12/05/172099 Calcium HS/PO (Lipitor) Aspirin 325 mg 12/05/17899 (Aspirin) DAILY/PO 12/05/17 09 Clopidogrel 75 mg 12/05/17899 Bisulfate DAILY/PO 12/05/17904 (Plavix) Carvedilol 3.125 mg 12/04/172099 (Coreg) BID/PO 12/05/17 0855 Enalapril Maleate 5 mg 12/04/172099 (Vasotec) BID/PO 12/05/17 09 Current Medications Medications (Trade) Dose Ordered Sig/Suze Route Start Time Stop Time Status Last Admin (NS Flush) 2 ml UNSCH PRN IVF 12/04/17 11:30 12/05/17 09:08 Nitroglycerin/ Dextrose 250 ml @ 3 mls/hr TITRATE PRN IV 12/04/17 11:45 Sodium Chloride 1,000 ml @ 100 mls/hr Q10H IV 12/04/17 13:00 12/05/17 12:59 12/05/17 09:13 (Restoril) 15 mg HS PRN PO 12/04/17 13:00 12/05/17 02:08 (Aspirin) 325 mg DAILY PO 12/05/17 09:00 12/05/17 09:05 (Plavix) 75 mg DAILY PO 12/05/17 09:00 12/05/17 09:05 (Coreg) 3.125 mg BID PO 12/04/17 21:00 12/05/17 08:55 (Vasotec) 5 mg BID PO 12/04/17 21:00 12/05/17 09:04 (Lipitor) 80 mg HS PO 12/05/17 21:00 Vital Signs / I&O Vital Signs Date Time Temp Pulse Resp B/P (MAP) Pulse Ox O2 Delivery O2 Flow Rate FiO2 12/05/17 10:00 66 12/05/17 09:00 66 12/05/17 08:34 99.0 69 18 131/78 (95) 99 12/05/17 08:00 68 12/05/17 07:00 77 12/05/17 06:00 60 12/05/17 05:00 66 12/05/17 04:00 68 12/05/17 03:32 64 16 147/75 (99) 97 12/05/17 03:00 65 12/05/17 02:00 66 12/05/17 01:00 58 12/05/17 00:00 66 12/04/17 23:38 70 16 155/73 (100) 98 12/04/17 23:00 57 12/04/17 22:00 62 12/04/17 21:00 62 12/04/17 20:00 80 12/04/17 20:00 98.7 58 16 149/79 (102) 97 12/04/17 19:00 62 12/04/17 18:00 67 12/04/17 17:00 54 12/04/17 16:12 98.5 66 18 135/81 (99) 99 12/04/17 16:00 65 12/04/17 15:25 56 12/04/17 15:00 64 12/04/17 14:22 98.0 75 18 130/64 (86) 97 12/04/17 14:00 76 12/04/17 11:51 98 15.00 12/04/17 11:25 98.2 53 30 161/102 (121) 100 Non-Rebreather 15.00 12/04/17 11:23 32 100 Non-Rebreather 15.00 12/04/17 11:23 100 Non-Rebreather I/O 12/04/17 12/04/17 12/04/17 12/05/17 12/05/17 12/05/17 07:00 15:00 23:00 07:00 15:00 23:00 Intake Total 490 ml 1730 ml 980 ml Output Total 300 ml 1500 ml Balance 190 ml 230 ml 980 ml Intake Oral 240 ml 480 ml IV Total 250 ml 1250 ml 980 ml Output Urine Total 300 ml 1500 ml # Bowel Movements 0 Physical Exam GENERAL: Well developed, well nourished. No acute distress. HEENT: Jugular venous pressure difficult to assess. CHEST: Lungs clear to auscultation anteriorly. CARDIAC: Regular rate and rhythm without S3, S4, or murmur. ABDOMEN: Soft, nontender, no hepatosplenomegaly. Bowel sounds present. EXTREMITIES: No clubbing, cyanosis, or edema. Right groin with moderate ecchymosis, mild/soft hematoma, normal fem pulse. Laboratory Laboratory Tests Test 12/04/17 11:15 12/05/17 03:48 White Blood Count 12.7 TH/MM3 12.1 TH/MM3 Red Blood Count 4.86 MIL/MM3 4.00 MIL/MM3 Hemoglobin 14.2 GM/DL 11.6 GM/DL Bedside Hemoglobin 13.9 G/DL Hematocrit 41.9 % 34.5 % Bedside Hematocrit 41.0 % Mean Corpuscular Volume 86.3 FL 86.4 FL Mean Corpuscular Hemoglobin 29.2 PG 29.0 PG Mean Corpuscular Hemoglobin Concent 33.8 % 33.5 % Red Cell Distribution Width 14.0 % 14.2 % Platelet Count 342 TH/MM3 293 TH/MM3 Mean Platelet Volume 7.1 FL 7.0 FL Neutrophils (%) (Auto) 38.3 % 69.4 % Lymphocytes (%) (Auto) 49.9 % 23.0 % Monocytes (%) (Auto) 7.6 % 6.4 % Eosinophils (%) (Auto) 3.3 % 0.8 % Basophils (%) (Auto) 0.9 % 0.4 % Neutrophils # (Auto) 4.9 TH/MM3 8.4 TH/MM3 Lymphocytes # (Auto) 6.3 TH/MM3 2.8 TH/MM3 Monocytes # (Auto) 1.0 TH/MM3 0.8 TH/MM3 Eosinophils # (Auto) 0.4 TH/MM3 0.1 TH/MM3 Basophils # (Auto) 0.1 TH/MM3 0.0 TH/MM3 CBC Comment AUTO DIFF DIFF FINAL Differential Total Cells Counted 100 Neutrophils % (Manual) 43 % Lymphocytes % 50 % Monocytes % 7 % Neutrophils # (Manual) 5.5 TH/MM3 Differential Comment FINAL DIFF MANUAL Platelet Estimate NORMAL Platelet Morphology Comment NORMAL Red Cell Morphology Comment NORMAL Prothrombin Time 10.3 SEC Prothromb Time International Ratio 1.0 RATIO Activated Partial Thromboplast Time 23.1 SEC Bedside Sodium 142 MMOL/L Bedside Potassium 3.7 MMOL/L Bedside Chloride 108 MMOL/L Bedside Blood Urea Nitrogen 20 MG/DL Bedside Creatinine 0.9 MG/DL Bedside Glucose 156 MG/DL Calcium Level 9.1 MG/DL 8.3 MG/DL Magnesium Level 1.8 MG/DL Total Creatine Kinase 279 U/L 1135 U/L Creatine Kinase MB 3.1 NG/ML 114.6 NG/ML Troponin I 0.09 NG/ML B-Type Natriuretic Peptide 5 PG/ML Blood Urea Nitrogen 9 MG/DL Creatinine 0.77 MG/DL Random Glucose 109 MG/DL Sodium Level 139 MEQ/L Potassium Level 4.0 MEQ/L Chloride Level 109 MEQ/L Carbon Dioxide Level 24.0 MEQ/L Anion Gap 6 MEQ/L Estimat Glomerular Filtration Rate 113 ML/MIN Creatine Kinase MB % 10.1 % Triglycerides Level 267 MG/DL Cholesterol Level 195 MG/DL LDL Cholesterol 115 MG/DL HDL Cholesterol 26.3 MG/DL Cholesterol/HDL Ratio 7.41 RATIO Imaging Last 24 hours Impressions Chest X-Ray 12/04/17 1118 Signed Impressions: Service Date/Time: Monday, December 04, 2017 11:25 - CONCLUSION: No acute disease. Foster Patrick MD Assessment and Plan Problem List: (1) STEMI (ST elevation myocardial infarction) ICD Codes: I21.3 - ST elevation (STEMI) myocardial infarction of unspecified site Status: Acute Plan: Stable overnight. No further angina. No CHF/arrhythmias. Transient post cath groin bleeding problems necessitating Femostop use, now stable. PLAN increase ambulation, possible discharge tomorrow on current medications, increase BROOKE-I dose (2) Hyperlipidemia ICD Codes: E78.5 - Hyperlipidemia, unspecified Status: Chronic Plan: Suboptimal lipid profile. Atorvastatin dosing increased to max. Code Status full code Discussed Condition With patient and his mother Problem Qualifiers (1) STEMI (ST elevation myocardial infarction): Qualified Codes: I21.11 - ST elevation (STEMI) myocardial infarction involving right coronary artery (2) Hyperlipidemia: Qualified Codes: E78.2 - Mixed hyperlipidemia Jaiden Fu MD Dec 05, 2017 10:47
--- NOTE | 2017-12-05 13:02 | EKG ---
Date Performed: 12/04/2017 Time Performed: 11:17:42 PTAGE: 37 years EKG: SINUS BRADYCARDIA WITH SINUS ARRHYTHMIA MODERATE INTRAVENTRICULAR CONDUCTION DELAY ST ELEVA TION, PROBABLY EARLY REPOLARIZATION BORDERLINE ECG NO PREVIOUS TRACING DOCTOR: Navi Mcneil Interpretating Date/Time 12/05/2017 13:01:34
[2017-12-05] MEDS ORDERED: ATORVASTATIN 40 MG TAB PO SCH (21:00)
[2017-12-05] MEDS: ENALAPRIL MALEATE 10 MG TAB PO SCH (21:15)
[2017-12-06] VITALS (15 sets, daily range): BP systolic 121–140; BP diastolic 65–80; PULSE 58–86; RESP 16–19; TEMP 97.8–97.9; O2SAT 97–98
[2017-12-06 08:05] LABS: AUTOMATED NEUTROPHIL # 5.7 TH/MM3 (1.8-7.7); BASOPHIL % 0.4 % (0.0-2.0); EOSINOPHIL # 0.1 TH/MM3 (0-0.4); EOSINOPHIL % 1.4 % (0.0-4.0); HEMATOCRIT 33.5 % (39.0-51.0); HEMOGLOBIN 11.4 GM/DL (13.0-17.0); LYMPH % 34.5 % (9.0-44.0); LYMPHOCYTE # 3.5 TH/MM3 (1.0-4.8); MEAN CELL VOLUME 86.5 FL (80.0-100.0); MEAN CORPUSCULAR HEMOGLOBIN 29.3 PG (27.0-34.0); MEAN CORPUSCULAR HGB CONC 33.9 % (32.0-36.0); MEAN PLATELET VOLUME 7.2 FL (7.0-11.0); MONO % 7.2 % (0.0-8.0); MONOCYTE # 0.7 TH/MM3 (0-0.9); NEUT % 56.5 % (16.0-70.0); PLATELET COUNT 251 TH/MM3 (150-450); RED BLOOD COUNT 3.87 MIL/MM3 (4.50-5.90); RED CELL DISTRIBUTION WIDTH 13.8 % (11.6-17.2); WHITE BLOOD COUNT 10.1 TH/MM3 (4.0-11.0)
[2017-12-06 08:28] LABS: BICARBONATE 25.4 MEQ/L (21.0-32.0); CALCIUM 8.5 MG/DL (8.5-10.1); CREATININE 0.76 MG/DL (0.60-1.30)
[2017-12-06] MEDS: ENALAPRIL MALEATE 10 MG TAB PO SCH (08:37)
[2017-12-06] MEDS: ASPIRIN 325 MG TAB PO SCH (08:37)
[2017-12-06] MEDS: CARVEDILOL 3.125 MG TAB PO SCH (08:37)
[2017-12-06] MEDS: CLOPIDOGREL 75 MG TAB PO SCH (08:37)
[2017-12-06] MEDS ORDERED: NORC5TAB PO (09:14)
[2017-12-06] MEDS ORDERED: ATOR40TA16 PO (09:14)
[2017-12-06] MEDS ORDERED: ASA325 PO (09:14)
[2017-12-06] MEDS ORDERED: ENAL10TA PO (09:14)
[2017-12-06] MEDS ORDERED: PLAV75TA29 PO (09:14)
[2017-12-06] MEDS ORDERED: NITR1SUB3 SL (09:14)
[2017-12-06] MEDS ORDERED: CARV3.125 PO (09:14)
--- NOTE | 2017-12-06 09:16 | HHI.DS ---
Discharge Summary Admission Date Dec 04, 2017 at 11:26 Discharge Date: Dec 06, 2017 Admitting Diagnosis STEMI (1) Elevated glucose level ICD Code: R73.09 - Other abnormal glucose (2) Hyperlipidemia ICD Code: E78.5 - Hyperlipidemia, unspecified Status: Chronic (3) STEMI (ST elevation myocardial infarction) ICD Code: I21.3 - ST elevation (STEMI) myocardial infarction of unspecified site Status: Acute Procedures 12/04/17 Left heart catheterization, selective coronary angiography, left ventriculography, thrombectomy, angioplasty and stent of a totally occluded proximal right coronary artery by Dr Fu cardiology Brief History - From Admission The patient is a 37-year-old white male with no major past medical history who is in his usual state of health up until this morning when he began to develop severe substernal chest pressure without associated shortness of breath, nausea or diaphoresis. He came to the emergency room where EKG showed evidence for acute inferior injury pattern so he was called a STEMI alert. At this time he continues to have severe 10/10 chest pain. The chest discomfort is nonradiating. He denies pleurisy, dizziness, syncope, near-syncope, palpitations, pedal edema, paroxysmal nocturnal dyspnea. In retrospect he thinks he has had similar episodes of chest discomfort in the past few months, though of much less intensity and duration. CBC/BMP: 12/06/17 0700 12/06/17 0700 Significant Findings Laboratory Tests Test 12/04/17 11:15 12/05/17 03:48 12/06/17 07:00 White Blood Count 12.7 TH/MM3 (4.0-11.0) 12.1 TH/MM3 (4.0-11.0) Lymphocytes (%) (Auto) 49.9 % (9.0-44.0) Lymphocytes # (Auto) 6.3 TH/MM3 (1.0-4.8) Monocytes # (Auto) 1.0 TH/MM3 (0-0.9) Lymphocytes % 50 % (9-44) Activated Partial Thromboplast Time 23.1 SEC (24.3-30.1) Bedside Glucose 156 MG/DL (68-110) Troponin I 0.09 NG/ML (0.02-0.05) Red Blood Count 4.00 MIL/MM3 (4.50-5.90) 3.87 MIL/MM3 (4.50-5.90) Hemoglobin 11.6 GM/DL (13.0-17.0) 11.4 GM/DL (13.0-17.0) Hematocrit 34.5 % (39.0-51.0) 33.5 % (39.0-51.0) Neutrophils # (Auto) 8.4 TH/MM3 (1.8-7.7) Random Glucose 109 MG/DL (74-106) Calcium Level 8.3 MG/DL (8.5-10.1) Chloride Level 109 MEQ/L (98-107) Total Creatine Kinase 1135 U/L (39-308) Creatine Kinase MB 114.6 NG/ML (0.5-3.6) Creatine Kinase MB % 10.1 % (0.0-4.0) Triglycerides Level 267 MG/DL (42-150) LDL Cholesterol 115 MG/DL (0-99) HDL Cholesterol 26.3 MG/DL (40.0-60.0) Imaging Last Impressions Chest X-Ray 12/04/17 1118 Signed Impressions: Service Date/Time: Monday, December 04, 2017 11:25 - CONCLUSION: No acute disease. Foster Patrick MD PE at Discharge GENERAL: Young male, in bed, morbidly obese, appears in nad. SKIN: Warm and dry. Right groin with ecchymosis, soft hematoma, some pain on palpation. Fem pulse normal. Femostop was removed. Right wrist normal pulse, no ecchymosis. CARDIOVASCULAR: Regular rate and rhythm. RESPIRATORY: No accessory muscle use. Clear to auscultation. Breath sounds equal bilaterally. GASTROINTESTINAL: Abdomen soft, non-tender, nondistended. Hepatic and splenic margins not palpable. MUSCULOSKELETAL: Extremities without clubbing, cyanosis, or edema. No obvious deformities. NEUROLOGICAL: Awake and alert. No obvious cranial nerve deficits. Motor grossly within normal limits. Five out of 5 muscle strength in the arms and legs. Normal speech. PSYCHIATRIC: Appropriate mood and affect; insight and judgment normal. Pt update on day of discharge Feels better. Less pain in his groin. Hematoma, ecchymosis improved. No fever or chills. No n/v/d/c. Denies chest pain or sob. no palpitations, no diaphoresis. Hospital Course S/P cardiac cath with stent placement by Dr Fu on 12/04/17. Patient with acute inferior ST elevation myocardial infarction due to total occlusion of the proximal right coronary artery, status post thrombectomy, angioplasty and stent placement by Dr. Fu. Stable overnight. No further angina. No CHF/arrhythmias. Transient post cath groin bleeding problems necessitating Femostop use, now stable. Femostop removed. Hematoma improved. Increase BROOKE-I dose per cardiology, continue current meds, bb, asa, plavix, statin. With Hyperlipidemia,Suboptimal lipid profile. Atorvastatin high dose. Patient improved, DC home in stable condition to follow up as OP with PCP and consultants. Pt Condition on Discharge: Stable Discharge Disposition: Discharge Home Discharge Time: > 30 minutes Discharge Instructions DIET: Follow Instructions for: Heart Healthy Diet Activities you can perform: Regular-No Restrictions Follow up Referrals: Cardiology - 1 Week PCP Follow-up - 2-3 Days New Orders: HEMOGLOBIN A1C - 2-3 Days New Medications: Hydrocodone-Acetaminophen ([place]) 5 Mg-325 Mg Tab 1 TAB PO Q6H PRN for PAIN, #20 TAB 0 Refills Nitroglycerin SL (Nitroglycerin SL) 0.4 Mg Subl 0.4 MG SL DIRECTED PRN for CHEST PAIN, #100 TAB.SL 0 Refills ONE TABLET UNDER THE TONGUE NEEDED FOR CHEST PAIN, MAY REPEAT EVERY FIVE MINUTES FOR A TOTAL OF 3 DOSES OR CALL 911 IF NO RELIEF Aspirin (Px Aspirin) 325 Mg Tab 325 MG PO DAILY for Blood Clot Prevention, #60 TAB Atorvastatin (Atorvastatin) 40 Mg Tab 80 MG PO HS for Cholesterol Management, #60 TAB Carvedilol (Coreg) 3.125 Mg Tab 3.125 MG PO BID for Blood Pressure Management, #120 TAB Clopidogrel (Plavix) 75 Mg Tab 75 MG PO DAILY for Blood Clot Prevention, #60 TAB Enalapril (Enalapril) 10 Mg Tab 10 MG PO BID for Blood Pressure Management, #60 TAB Discontinued Medications: Amoxicillin (Amoxicillin) 875 Mg Tab 875 MG PO BID, #20 TAB Ibuprofen (Motrin 800 Mg Tab) 800 Mg Tab 800 MG PO Q8H PRN for PAIN SCALE 1 TO 10 for 7 Days, TAB Yue Alfonso MD Dec 06, 2017 09:16
--- NOTE | 2017-12-06 12:03 | PD.CARD.PN ---
Subjective Subjective Remarks No further angina. Fleeting left parasternal "pinchy" pain early this morning, very dissimilar from presenting CP. No dyspnea, dizziness, nausea, groin pain, wrist pain, palpitations. Objective Medications Item Value Date Time Atorvastatin 80 mg 12/05/172099 Calcium HS/PO 12/05/172113 (Lipitor) Enalapril Maleate 10 mg 12/05/172099 (Vasotec) BID/PO 12/06/17836 Aspirin 325 mg 12/05/17899 (Aspirin) DAILY/PO 12/06/17836 Clopidogrel 75 mg 12/05/17899 Bisulfate DAILY/PO 12/06/17836 (Plavix) Carvedilol 3.125 mg 12/04/172099 (Coreg) BID/PO 12/06/17836 Current Medications Medications (Trade) Dose Ordered Sig/Suze Route Start Time Stop Time Status Last Admin (NS Flush) 2 ml UNSCH PRN IVF 12/04/17 11:30 12/05/17 21:16 Nitroglycerin/ Dextrose 250 ml @ 3 mls/hr TITRATE PRN IV 12/04/17 11:45 (Restoril) 15 mg HS PRN PO 12/04/17 13:00 12/05/17 23:16 (Aspirin) 325 mg DAILY PO 12/05/17 09:00 12/06/17 08:37 (Plavix) 75 mg DAILY PO 12/05/17 09:00 12/06/17 08:37 (Coreg) 3.125 mg BID PO 12/04/17 21:00 12/06/17 08:37 (Lipitor) 80 mg HS PO 12/05/17 21:00 12/05/17 21:14 (Vasotec) 10 mg BID PO 12/05/17 21:00 12/06/17 08:37 Vital Signs / I&O Vital Signs Date Time Temp Pulse Resp B/P (MAP) Pulse Ox O2 Delivery O2 Flow Rate FiO2 12/06/17 09:00 69 12/06/17 08:25 97.9 73 18 136/71 (92) 98 12/06/17 08:00 76 12/06/17 07:00 80 12/06/17 06:00 72 12/06/17 05:00 74 12/06/17 04:00 72 12/06/17 03:52 76 16 121/65 (83) 97 12/06/17 03:00 74 12/06/17 02:00 76 12/06/17 01:00 76 12/06/17 00:00 86 12/05/17 23:29 86 16 124/65 (84) 97 12/05/17 23:00 95 12/05/17 22:00 88 12/05/17 21:00 86 12/05/17 20:00 88 12/05/17 19:45 98.3 87 16 147/83 (104) 99 12/05/17 19:00 80 12/05/17 18:00 74 12/05/17 17:00 78 12/05/17 16:00 78 12/05/17 15:27 99.1 78 18 130/68 (88) 97 12/05/17 15:00 74 12/05/17 14:00 70 12/05/17 13:00 72 12/05/17 12:17 98.3 66 18 129/75 (93) 98 I/O 12/05/17 12/05/17 12/05/17 12/06/17 12/06/17 12/06/17 07:00 15:00 23:00 07:00 15:00 23:00 Intake Total 1730 ml 980 ml 880 ml 480 ml Output Total 1500 ml 1200 ml 1000 ml Balance 230 ml 980 ml -320 ml -520 ml Intake Oral 480 ml 480 ml 480 ml IV Total 1250 ml 980 ml 400 ml Output Urine Total 1500 ml 1200 ml 1000 ml # Bowel Movements 0 0 0 Physical Exam GENERAL: Well developed, well nourished. No acute distress. HEENT: Jugular venous pressure difficult to assess. CHEST: Lungs clear to auscultation anteriorly. CARDIAC: Regular rate and rhythm without S3, S4, or murmur. ABDOMEN: Soft, nontender, no hepatosplenomegaly. Bowel sounds present. EXTREMITIES: No clubbing, cyanosis, or edema. Right groin with unchanged moderate ecchymosis, mild/soft hematoma, normal fem pulse. Laboratory Laboratory Tests Test 12/06/17 07:00 White Blood Count 10.1 TH/MM3 Red Blood Count 3.87 MIL/MM3 Hemoglobin 11.4 GM/DL Hematocrit 33.5 % Mean Corpuscular Volume 86.5 FL Mean Corpuscular Hemoglobin 29.3 PG Mean Corpuscular Hemoglobin Concent 33.9 % Red Cell Distribution Width 13.8 % Platelet Count 251 TH/MM3 Mean Platelet Volume 7.2 FL Neutrophils (%) (Auto) 56.5 % Lymphocytes (%) (Auto) 34.5 % Monocytes (%) (Auto) 7.2 % Eosinophils (%) (Auto) 1.4 % Basophils (%) (Auto) 0.4 % Neutrophils # (Auto) 5.7 TH/MM3 Lymphocytes # (Auto) 3.5 TH/MM3 Monocytes # (Auto) 0.7 TH/MM3 Eosinophils # (Auto) 0.1 TH/MM3 Basophils # (Auto) 0.0 TH/MM3 CBC Comment DIFF FINAL Differential Comment Blood Urea Nitrogen 8 MG/DL Creatinine 0.76 MG/DL Random Glucose 91 MG/DL Calcium Level 8.5 MG/DL Sodium Level 139 MEQ/L Potassium Level 3.7 MEQ/L Chloride Level 105 MEQ/L Carbon Dioxide Level 25.4 MEQ/L Anion Gap 9 MEQ/L Estimat Glomerular Filtration Rate 115 ML/MIN Assessment and Plan Problem List: (1) STEMI (ST elevation myocardial infarction) ICD Codes: I21.3 - ST elevation (STEMI) myocardial infarction of unspecified site Status: Acute Plan: Stable overnight. No further angina. Very atypical fleeting CP this morning. No CHF/arrhythmias. Transient post cath groin bleeding problems necessitating Femostop use, now stable. PLAN OK to discharge today from my standpoint, low level activity for 2 weeks, f /u with me 4 weeks, on current medications (2) Hyperlipidemia ICD Codes: E78.5 - Hyperlipidemia, unspecified Status: Chronic Plan: Suboptimal lipid profile. Continue high dose atorvastatin Code Status full code Discussed Condition With patient and family Problem Qualifiers (1) STEMI (ST elevation myocardial infarction): Qualified Codes: I21.11 - ST elevation (STEMI) myocardial infarction involving right coronary artery (2) Hyperlipidemia: Qualified Codes: E78.2 - Mixed hyperlipidemia Jaiden Fu MD Dec 06, 2017 12:03
== END 2017-12-06 13:56 | disposition home or self-care (01) | DRG 249 ==
LOC: NEPC 11:16 → NEDA 11:26 → HCIS 13:31
PROVIDERS: ADMIT Hospitalist; ATTEND Hospitalist
PROC: 02703DZ Dilation of Coronary Artery, One Artery with Intraluminal Device, Percutaneous Approach (ICD-10-PCS; principal; 2017-12-04)
PROC: 02C03ZZ Extirpation of Matter from Coronary Artery, One Artery, Percutaneous Approach (ICD-10-PCS; 2017-12-04)
PROC: 4A023N7 Measurement of Cardiac Sampling and Pressure, Left Heart, Percutaneous Approach (ICD-10-PCS; 2017-12-04)
PROC: B2111ZZ Fluoroscopy of Multiple Coronary Arteries using Low Osmolar Contrast (ICD-10-PCS; 2017-12-04)
PROC: B2151ZZ Fluoroscopy of Left Heart using Low Osmolar Contrast (ICD-10-PCS; 2017-12-04)
DX: I21.11 ST elevation (STEMI) myocardial infarction involving right coronary artery (principal); Z68.41 Body mass index [BMI] 40.0-44.9, adult; I25.10 Atherosclerotic heart disease of native coronary artery without angina pectoris; E78.2 Mixed hyperlipidemia; R73.9 Hyperglycemia, unspecified; E66.01 Morbid (severe) obesity due to excess calories
CPT/HCPCS: 71045; 80048; 80061; 82310; 82550; 82552; 83735; 83880; 84484; 85002; 85007; 85025; 85027; 85610; 85730; 92941; 93005; 93458; 99152; 99153; 99291; C1725; C1757; C1769; C1876; C1887; C1893; J0461; J1644; J2250; J2270; J3010; J3246; J7030; Q9967

== ENCOUNTER → 2017-12-13 | Outpatient (CLI) | payer SELFPAY ==
[~2017-12-13] MED LIST changes: -AMOX875 PO; +ASA325 PO; +ATOR40TA16 PO; +CARV3.125 PO; +ENAL10TA PO; -IBUP800 PO; -IOHEXOL 350 MG/ML 100 ML BTL (for Cath Lab) OTHER ONE; +NITR1SUB3 SL; +NORC5TAB PO; +PLAV75TA29 PO
[2017-12-13 16:56] LABS: HEMOGLOBIN A1C 5.6 % (4.3-6.0)
== END ==
LOC: CLAB 08:20
PROVIDERS: ATTEND Hospitalist
DX: R73.09 Other abnormal glucose (principal)
CPT/HCPCS: 36415; 83036